=== PATIENT | male | born 1935 | race Caucasian/White ===

== ENCOUNTER 2018-02-20 17:20 | Inpatient (IN) ==
[2018-02-20] MEDS ORDERED: KETOROLAC 30 MG/1 ML VIAL IV STA (17:45)
[2018-02-20 18:30] LABS: Basophils % 0.5 % (0.0-0.8); Eosinophils # 0.2 10*3/uL (0.0-0.87); Eosinophils % 2.3 % (0.00-10.9); Hematocrit 40.6 VOL% (42.0-52.0); Hemoglobin 13.4 GM/DL (14.0-18.0); Immature Granulocytes % 0.2 %; Immature Granulocytes Absolute 0.02 #; Lymphocytes # 2.1 10*3/uL (1.4-4.0); Lymphocytes % 23.5 % (21.2-54.2); Mean Corpuscular Hemoglobin 31 PG (27-34); Mean Corpuscular Volume 92.3 FL (87-102); Mean Platelet Volume 9.9 FL (9.6-12.0); Monocytes # 0.7 10*3/uL (0.11-0.8); Monocytes % 7.5 % (1.7-12.7); Neutrophils # 5.8 10*3/uL (1.4-7.4); Platelet Count 181 T/CUMM (130-400); Red Cell Distribution Width 14.7 % (9.3-17.3); White Blood Count 8.8 T/CUMM (4-12)
[2018-02-20 18:40] LABS: INR 1.1; PT Patient Result 11.4 SECS; Partial Thromboplastin Time 27.5 SECS (0-40)
[2018-02-20 18:52] LABS: Free T4 (Free Thyroxine) 1.23 NG/DL (0.76-1.46); Troponin I Only 0.042 NG/ML (0.00-0.045)
[2018-02-20 18:58] LABS: Albumin 3.1 G/DL (3.4-5.0); Bilirubin,Total 0.5 MG/DL (0.2-1.0); Calcium 9.1 MG/DL (8.5-10.1); Potassium 4.3 MMOL/L (3.5-5.1); Thyroid Stimulating Hormone 1.32 uIU/ml (0.358-3.74); Total Protein 6.7 G/DL (6.4-8.3); Troponin I Only 0.04 NG/ML (0.00-0.045)
[2018-02-21] MEDS ORDERED: MORPHINE 4 MG/1 ML VIAL IV PRN (00:05)
[2018-02-21] MEDS ORDERED: ONDANSETRON 4 MG/2 ML VIAL IV PRN (00:05)
[2018-02-21] MEDS ORDERED: GLUCAGON 1 MG VIAL IM PRN (00:05)
[2018-02-21] MEDS ORDERED: DEXTROSE 50% 25 GM/50 ML VIAL IV PRN (00:05)
[2018-02-21] MEDS ORDERED: ACETAMINOPHEN 325 MG TABLET PO PRN (00:05)
[2018-02-21] MEDS: traZODone 50 MG TABLET PO SCH ×2 (00:22→20:41)
[2018-02-21] MEDS: CARVEDILOL 25 MG TABLET PO SCH ×3 (00:22→20:41)
[2018-02-21 01:13] LABS: Risk Ratio 2.3; VLDL CHOLESTEROL 18.4 MG/DL
[2018-02-21 02:13] LABS: Apearance,Urine CLEAR (Clear); Bacteria,Urine Occasional /HPF (Few); Bilirubin,Urine Negative (Negative); Blood, Urine Negative (Negative); Glucose,Urine (UA) Negative (Negative); Ketones,Urine Negative (Negative); Mucus,Urine Occasional /LPF (Occasional); Nitrite,Urine Negative (Negative); Protein,Urine 100 MG/DL; RBC,Urine 1 /HPF (0-4); Squamous Epithelial Cell,Urine Occasional /HPF (0-10); Urine Color Yellow (Yellow); Urine Specific Gravity > 1.060 (1.001-1.035); Urine Urobilinogen < 2.0 EU/DL (0.2-1.0); WBC,Urine 1 /HPF (0-6)
[2018-02-21 02:17] LABS: Barbiturates Screen,Urine Negative (Negative); Benzodiazepines Screen,Urine Negative (Negative); Cannabinoid Screen,Urine Negative (Negative); Opiate Screen,Urine Negative (Negative); Phencyclidine Screen,Urine Negative (Negative)
[2018-02-21] MEDS: LEVOTHYROXINE 112 MCG TABLET PO SCH (06:16)
[2018-02-21] MEDS: ENOXAPARIN 40 MG/0.4 ML SYRINGE SUBCUT SCH (08:57)
[2018-02-21] MEDS: DOCUSATE SODIUM 100 MG CAPSULE PO SCH ×2 (08:57→20:41)
[2018-02-21] MEDS: INSULIN REGULAR 100 UNIT/ML SUBCUT SCH ×4 (08:57→21:31)
[2018-02-21] MEDS: MULTIVITAMIN (CENTRUM) TABLET PO SCH (08:57)
[2018-02-21] MEDS: ATORVASTATIN 10 MG TABLET PO SCH (08:57)
[2018-02-21] MEDS: CALCIUM (CARBONATE) 600 MG TABLET PO SCH (08:57)
[2018-02-21] MEDS: PANTOPRAZOLE 40 MG TABLET PO SCH (08:58)
[2018-02-21] MEDS: LOSARTAN 50 MG TABLET PO SCH (08:58)
[2018-02-21] MEDS ORDERED: FUROSEMIDE 40 MG/4 ML VIAL IV SCH (09:00)
[2018-02-21] MEDS: MAGNESIUM OXIDE 400 MG TABLET PO SCH (18:33)
[2018-02-21] MEDS: TAMSULOSIN 0.4 MG CAPSULE PO SCH (20:41)
[2018-02-21] MEDS ORDERED: NON-FORMULARY MEDICATION (Potassium [Potassium] 99 MG) PO SCH (21:00)
[2018-02-21] MEDS ORDERED: CLOPIDOGREL 75 MG TABLET PO SCH (21:00)
[2018-02-21] MEDS ORDERED: NON-FORMULARY MEDICATION (Saccharomyces Boulardii [Probiotic] 250 MG) PO SCH (21:00)
[2018-02-21] MEDS: INSULIN GLARGINE 100 UNIT/ML SUBCUT SCH (21:31)
[2018-02-22] MEDS: LEVOTHYROXINE 112 MCG TABLET PO SCH (06:05)
[2018-02-22] MEDS: INSULIN REGULAR 100 UNIT/ML SUBCUT SCH ×4 (09:37→21:35)
[2018-02-22] MEDS: PANTOPRAZOLE 40 MG TABLET PO SCH (09:38)
[2018-02-22] MEDS: ATORVASTATIN 10 MG TABLET PO SCH (09:38)
[2018-02-22] MEDS: CALCIUM (CARBONATE) 600 MG TABLET PO SCH (09:38)
[2018-02-22] MEDS: LOSARTAN 50 MG TABLET PO SCH (09:38)
[2018-02-22] MEDS: MULTIVITAMIN (CENTRUM) TABLET PO SCH (09:38)
[2018-02-22] MEDS: FUROSEMIDE 40 MG TABLET PO SCH (09:38)
[2018-02-22] MEDS: DOCUSATE SODIUM 100 MG CAPSULE PO SCH ×2 (09:38→21:35)
[2018-02-22] MEDS: ENOXAPARIN 40 MG/0.4 ML SYRINGE SUBCUT SCH (09:39)
[2018-02-22] MEDS: CARVEDILOL 25 MG TABLET PO SCH ×2 (09:39→21:34)
[2018-02-22] MEDS ORDERED: ENOXAPARIN 80 MG/0.8 ML SYRINGE SUBCUT SCH ×2 (14:30→21:00)
[2018-02-22] MEDS: MAGNESIUM OXIDE 400 MG TABLET PO SCH (19:01)
[2018-02-22] MEDS: TAMSULOSIN 0.4 MG CAPSULE PO SCH (21:34)
[2018-02-22] MEDS: APIXABAN 5 MG TABLET PO SCH (21:34)
[2018-02-22] MEDS: traZODone 50 MG TABLET PO SCH (21:34)
[2018-02-22] MEDS: INSULIN GLARGINE 100 UNIT/ML SUBCUT SCH (21:35)
[2018-02-23 06:30] LABS: Calcium 8.7 MG/DL (8.5-10.1); Osmolality,Calculated 282.1 MOS/KG (273-304); Potassium 3.9 MMOL/L (3.5-5.1)
[2018-02-23] MEDS: LEVOTHYROXINE 112 MCG TABLET PO SCH (06:52)
[2018-02-23 08:29] VITALS: BP 131/70
[2018-02-23] MEDS ORDERED: ASPIRIN EC 81 MG TABLET PO SCH (09:00)
[2018-02-23] MEDS: INSULIN REGULAR 100 UNIT/ML SUBCUT SCH ×2 (09:20→14:05)
[2018-02-23] MEDS: FUROSEMIDE 40 MG TABLET PO SCH (10:32)
[2018-02-23] MEDS: MULTIVITAMIN (CENTRUM) TABLET PO SCH (10:32)
[2018-02-23] MEDS: CALCIUM (CARBONATE) 600 MG TABLET PO SCH (10:33)
[2018-02-23] MEDS: PANTOPRAZOLE 40 MG TABLET PO SCH (10:33)
[2018-02-23] MEDS: DOCUSATE SODIUM 100 MG CAPSULE PO SCH (10:33)
[2018-02-23] MEDS: LOSARTAN 50 MG TABLET PO SCH (10:33)
[2018-02-23] MEDS: APIXABAN 5 MG TABLET PO SCH (10:33)
[2018-02-23] MEDS: CARVEDILOL 25 MG TABLET PO SCH (10:33)
[2018-02-23] MEDS: ATORVASTATIN 10 MG TABLET PO SCH (10:33)
== END 2018-02-23 13:54 | disposition home or self-care (01) | DRG 293 ==
LOC: N.ED 17:20 → N.EDINP 21:47 → SUATTDRO 21:47 → N.TELES 23:04
PROVIDERS: ADMIT Internal Medicine Cardiovascular Disease; ATTEND Internal Medicine